=== PATIENT | female | born 1935 | race Caucasian/White ===

== ENCOUNTER → 2020-06-25 | Outpatient (CLI) | payer MEDICARE, OTHER ==
[~2020-06-25] MED LIST: MIRALAX 119 GR119 GM GT; ZOFRAN ODT 4 MG4 MG PO
== END ==
LOC: CT 15:30
DX: R10.10 Upper abdominal pain, unspecified (principal); K59.00 Constipation, unspecified
CPT/HCPCS: Q9967

== ENCOUNTER 2021-03-13 08:28 | Emergency (ER) | payer MEDICARE, OTHER ==
[~2021-03-13] VITALS: Ht 144.8 cm; Wt 49.0 kg
== END 2021-03-13 15:02 | disposition home or self-care (01) ==
LOC: ER1 08:28
DX: U07.1 COVID-19 (principal); Z23 Encounter for immunization; I11.9 Hypertensive heart disease without heart failure
CPT/HCPCS: 99283; M0243

== ENCOUNTER → 2021-09-24 | Outpatient (CLI) | payer MEDICARE, OTHER ==
[2021-09-24 19:20] LABS: BUN/CREATININE RATIO 26 (0-10)
== END ==
LOC: LAB 18:02
PROVIDERS: Nurse Practitioner Family
DX: E87.1 Hypo-osmolality and hyponatremia (principal)
CPT/HCPCS: 80048

== ENCOUNTER 2021-11-10 19:23 | Observation (INO) | payer MEDICARE, OTHER ==
[~2021-11-10] VITALS: Ht 147.3 cm; Wt 54.4 kg
[2021-11-10 20:32] LABS: HEMOGLOBIN 11.8 gm/dl (12.3-15.3); RED BLOOD COUNT 3.91 M/UL (4.00-5.10); WHITE BLOOD COUNT 6.8 K/UL (4.5-11.0)
[2021-11-10 20:53] LABS: BUN/CREATININE RATIO 25 (0-10)
[2021-11-11] MEDS ORDERED: ACETAMINOPHEN500 MG PO (10:02)
[2021-11-11] MEDS ORDERED: AZELASTINE137 MCG/0. (10:03)
[2021-11-11] MEDS ORDERED: DOXEPIN HCL100 MG PO (10:05)
[2021-11-11] MEDS ORDERED: CALMOSEPTINE OI71 GM TOP (10:05)
[2021-11-11] MEDS ORDERED: ELIQUIS2.5 MG PO (10:05)
[2021-11-11] MEDS ORDERED: FAMOTIDINE20 MG PO (10:06)
[2021-11-11] MEDS ORDERED: FLUOXETINE HCL10 M1 PO (10:07)
[2021-11-11] MEDS ORDERED: FLONASE 0.05% N16 GM (10:07)
[2021-11-11] MEDS ORDERED: METOPROLOL TART50 MG PO (10:08)
[2021-11-11] MEDS ORDERED: LOSARTAN POTASS25 MG PO (10:08)
[2021-11-11] MEDS ORDERED: HYDRALAZINE HCL50 MG PO (10:08)
[2021-11-11] MEDS ORDERED: OMEPRAZOLE40 MG PO (10:09)
[2021-11-11] MEDS ORDERED: MONTELUKAST SOD10 MG PO (10:09)
[2021-11-11] MEDS ORDERED: SODIUM CHLORIDE1 GM PO (10:10)
[2021-11-11] MEDS ORDERED: PROLOPRIM 100100 MG PO (10:11)
[2021-11-11] MEDS ORDERED: CRESTOR5 MG PO (10:11)
[2021-11-11] MEDS ORDERED: VITAMIN D21250 MCG PO (10:11)
[2021-11-11] MEDS ORDERED: FLOMAX 0.4 MG0.4 MG PO (10:12)
[2021-11-11 13:59] LABS: BUN/CREATININE RATIO 19 (0-10)
[2021-11-12 17:05] LABS: BUN/CREATININE RATIO 40 (0-10)
[2021-11-13] MEDS ORDERED: COZAAR 50MG TAB50 MG PO (09:30)
[2021-11-13] MEDS ORDERED: LASIX20 MG PO (09:30)
--- NOTE | 2021-11-13 15:11 | NUR ---
[facility] MADE AWARE THAT PATIENT IS DISCHARGED. THEY WILL SEE PATIENT TOMORROW.
== END 2021-11-13 13:38 | disposition home or self-care (01) ==
LOC: ER1 19:23 → CDU 11-11 03:14 → M/S 11-11 03:14
PROVIDERS: Internal Medicine Infectious Disease; Physician Assistant; ADMIT Internal Medicine
DX: I11.0 Hypertensive heart disease with heart failure (principal); I50.31 Acute diastolic (congestive) heart failure; Z20.822 Contact with and (suspected) exposure to COVID-19; J45.909 Unspecified asthma, uncomplicated; I48.20 Chronic atrial fibrillation, unspecified; E78.5 Hyperlipidemia, unspecified; E87.1 Hypo-osmolality and hyponatremia; Z66 Do not resuscitate; R79.89 Other specified abnormal findings of blood chemistry; I71.2 Thoracic aortic aneurysm, without rupture; I35.0 Nonrheumatic aortic (valve) stenosis; I16.0 Hypertensive urgency; Z79.01 Long term (current) use of anticoagulants; Z79.51 Long term (current) use of inhaled steroids; Z79.899 Other long term (current) drug therapy; Z88.1 Allergy status to other antibiotic agents; Z88.2 Allergy status to sulfonamides; Z88.6 Allergy status to analgesic agent
CPT/HCPCS: 71045; 80048; 80053; 81001; 82150; 82550; 82553; 83690; 83735; 83880; 84484; 85025; 85379; 93005; 94640; 94664; 94760; 96374; 96375; 96376; 99285; G0378; J0360; J1940; J2405; Q9967; U0002